=== PATIENT | male | born 1960 | race Caucasian/White ===

== ENCOUNTER → 2024-01-27 16:43 | Outpatient (REF) | payer BC, SELFPAY | LOC: RAD 16:43 | PROVIDERS: ATTENDING PHYSICIAN Surgery; FAMILY PHYSICIAN Family Medicine | DX: N20.0 Calculus of kidney (principal) | CPT/HCPCS: 74018 ==

== ENCOUNTER 2024-05-21 10:53 | Emergency (ER) | payer BC, SELFPAY ==
[2024-05-21 10:54] VITALS: BP 147/101
--- NOTE | 2024-05-21 11:10 | ED.GENMED ---
History of Present Illness
General
Chief Complaint: Male Genito-Urinary Symptoms
Source: patient
Time Seen by Provider: 05/21/24 10:58
History of Present Illness
History of Present Illness:
63yoM with a history of hypertension, hyperlipidemia, aortic valve replacement, and BPH presenting for evaluation of urinary retention. Patient has been unable to urinate since 11pm last night. He reports significant suprapubic pressure and pain. He
denies any fevers or vomiting. He states he was recently diagnosed with a low grade prostate cancer but has not started treatment yet.
Past History
Past History
ED Past Medical History: HTN, Hypercholesterolemia, Valvular disease, Psychiatric (Depression, Anxiety) and Other (Headache, Sleep apnea, Diverticulitis, Hernia, )
ED Past Surgical History: Cardiac (Aortic valve replaced X 3, pacemaker) and Other (Deviated septum repair)
Social History
Tobacco: Non-smoker
Alcohol: None
Personal:
Living: with family
Employment: Employed
Family History
Family History: Cancer
Phy Exam
General Physical Exam
General Presentation: moderate distress
General age: appears stated age
General Skin: warm and dry
General Habitus: normal
General Mental: alert
Pulmonary Exam
Pulmonary Exam: no respiratory distress
Gastrointestinal Exam
Gastrointestinal Exam: soft, non distended and tender (+Tenderness to suprapubic region with palpable bladder)
Skin Exam
Skin Exam: normal color and warm/dry
Course
Orders/Labs/Results
Orders:
Orders
05/21/24 10:58
Bladder Scan- Treatment ONCE
05/21/24 11:09
Castaneda Placement- Treatment ONCE
Reason for insertion: Acute Retention
05/21/24 11:17
Urinalysis Reflex To Culture Urgent
Date Specimen was Collected: 05/21/24
Time Specimen was Collected: 11:15
Urine Microscopic Reflex Cult Urgent
Abnormal Lab Results
05/21/24
11:17
Ur Occult Blood Reflex 1+ A
(Negative)
Urine RBC 7-10 A /HPF
(0-2)
Vital Signs
Initial and Last Documented VS:
Initial Vital Signs
Temp Pulse Resp BP Pulse Ox
97.6 F 104 18 147/101 98
05/21/24 10:54 05/21/24 10:54 05/21/24 10:54 05/21/24 10:54 05/21/24 10:54
Last Documented Vital Signs
Temp Pulse Resp BP Pulse Ox
97.6 F 104 18 147/101 98
05/21/24 10:54 05/21/24 10:54 05/21/24 10:54 05/21/24 10:54 05/21/24 10:54
MDM/Problems Addressed
Differential Diagnosis Includes:
63yoM here with acute urinary retention. Unable to urinate since last night. Known hx of BPH. He is afebrile and hemodynamically stable. He appears uncomfortable due to pain. Palpable bladder on exam. Differential diagnosis includes but is not
limited to: urinary retention, BPH, UTI
Initial ED plan: Bladder scan and likely Castaneda catheter placement.
*Critical Care Note
Total Time (30-74mins, 75-104mins- exclusive of procedures): Not Applicable
Update Note
Update Note:
Bladder scan around 770cc. Castaneda catheter inserted by nursing staff without difficulty. Urine return of about 900cc upon insertion. UA shows microscopic hematuria but no signs of infection. Symptoms resolved after catheter placement. He is stable
for discharge. Will discharge with catheter in place. Catheter care education provided by nursing staff. He has an appt scheduled with his urologist in 3 days. ED return precautions discussed. He was discharged in stable condition.
ED Attending Note
-
Portions of this chart may have been created with voice recognition software.� Occasional wrong word or��sound alike� substitutions may have occurred due to the inherent limitations of voice recognition software.
Discharge Plan
Departure
Patient Disposition: Home (Routine Discharge)
Date of Disposition: 05/21/24
Time of Disposition: 12:17
Patient with high blood pressure during this ER visit?: Yes
Discharge Problem:
Acute urinary retention
Instructions: How to Care for Your Castaneda Catheter, Male, Urinary Retention (DC)
Prescriptions:
No Action
sertraline 100 MG tablet
100 mg PO DAILY
ibuprofen 200 MG tablet
400 - 1,000 mg PO DAILY
fluticasone propionate 1 SPRAY spray,suspension
1 spray intranasal DAILY
aspirin 81 MG tablet,delayed release (DR/EC)
81 mg PO DAILY 0RF
lisinopril 5 MG tablet
5 mg PO DAILY Qty: 30 2RF
multivitamin with folic acid [Tab-A-Ponce] 1 TABLET tablet
1 tab PO DAILY 0RF
metoprolol succinate 25 mg Tablet Extended Release 24 Hr
25 mg PO DAILY
rosuvastatin 20 mg Tablet
25 mg PO DAILY
cyclobenzaprine 10 mg tablet
10 mg PO HS PRN (Reason: Muscle spasm) Qty: 7 0RF
Referrals:
Sunny Menjivar MD [Active] -
Lee Leach MD [Family Provider] -
Activity Restrictions/Additional Instructions:
Please follow-up with your urologist for catheter removal. Return to the ER with any worsening symptoms, fevers, or if the catheter stops draining.
Interventions
Interventions:
*Risk Screen - Suicide Last Done: 05/21/24 10:54
*General Assessment Last Done: 05/21/24 10:54
*Neglect/Abuse Screening Last Done: 05/21/24 10:54
*Nursing Disposition Last Done: 05/21/24 13:01
ED-Male Genitourinary Assessment Last Done: 05/21/24 11:10
Discharge Date and Time
Discharge Date/Time: 05/21/24 13:01
Print Language: SETS[place]
[2024-05-21 11:32] LABS: Urine Albumin Negative (Neg - Trace); Urine Bilirubin Negative (Negative); Urine Character Clear (Clear); Urine Color Yellow; Urine Glucose Negative (Negative); Urine Ketone Negative (Negative); Urine Leukocyte Negative (Negative); Urine Nitrite Negative (Negative); Urine Occult Blood 1+ (Negative); Urine Urobilinogen Negative (Neg - 1+)
[2024-05-21 12:07] LABS: Urine White Cell None Seen /HPF (0-5)
== END 2024-05-21 13:01 | disposition home or self-care (01) ==
LOC: EMR 10:53
PROVIDERS: Physician Assistant; EMERGENCY PHYSICIAN Emergency Medicine; FAMILY PHYSICIAN Family Medicine
DX: R31.9 Hematuria, unspecified (principal); I10 Essential (primary) hypertension; E78.00 Pure hypercholesterolemia, unspecified; N40.1 Benign prostatic hyperplasia with lower urinary tract symptoms; I38 Endocarditis, valve unspecified; C61 Malignant neoplasm of prostate; F41.8 Other specified anxiety disorders; G47.30 Sleep apnea, unspecified; Z95.0 Presence of cardiac pacemaker; Z95.2 Presence of prosthetic heart valve
CPT/HCPCS: 99282; 51702; 81003; 81015

== ENCOUNTER 2024-06-04 12:25 | Emergency (ER) | payer BC, SELFPAY ==
[2024-06-04 12:27] VITALS: BP 168/103
[2024-06-04 14:18] LABS: Urine Albumin Trace (Neg - Trace); Urine Bilirubin Negative (Negative); Urine Character Clear (Clear); Urine Color Yellow; Urine Glucose Negative (Negative); Urine Ketone Negative (Negative); Urine Leukocyte Negative (Negative); Urine Nitrite Negative (Negative); Urine Occult Blood 3+ (Negative); Urine Urobilinogen Negative (Neg - 1+)
[2024-06-04 14:36] LABS: Urine White Cell 0-2 /HPF (0-5)
--- NOTE | 2024-06-04 14:55 | ED.GENMED ---
History of Present Illness
<Sal Rawls PA-C - Last Filed: 06/05/24 09:57>
General
Chief Complaint: Male Genito-Urinary Symptoms
Time Seen by Provider: 06/04/24 12:55
History of Present Illness
History of Present Illness:
63-year-old male presents to the emergency department for evaluation of acute urinary retention. He was seen in this emergency department 2 weeks ago for the same symptoms, Peterson catheter was placed and he was started on Flomax. He followed up
with urology at which time the Peterson was removed and he was able to tolerate the voiding trial. Has only had small trickles of urine since last night. He has been compliant with Flomax.
Past History
<Sal Rawls PA-C - Last Filed: 06/05/24 09:57>
Past History
ED Past Medical History: HTN, Hypercholesterolemia, Valvular disease, Psychiatric (Depression, Anxiety) and Other (Headache, Sleep apnea, Diverticulitis, Hernia, )
ED Past Surgical History: Cardiac (Aortic valve replaced X 3, pacemaker) and Other (Deviated septum repair)
Social History
Tobacco: Non-smoker
Alcohol: None
Personal:
Living: with family
Employment: Employed
Family History
Family History: Cancer
Review of Systems
<Sal Rawls PA-C - Last Filed: 06/05/24 09:57>
Review of Systems
Allergies reviewed?: Yes
All Other Systems: ROS reviewed and negative except as documented in HPI and ROS
Phy Exam
<Sal Rawls PA-C - Last Filed: 06/05/24 09:57>
Physical Exam
Physical Exam:
GEN: Well appearing, NAD, WDWN
HEENT: Oral mucosa moist, no scleral icterus
Cardiac: Regular rate
Lung: No respiratory distress, no tachypnea
MSK: No gross deformity or injuries
Skin: Good color, no pallor or jaundice, no rashes
Neuro: AO x3, moves all extremities freely
Psych: Calm, cooperative
Course
<Sal Rawls PA-C - Last Filed: 06/05/24 09:57>
Orders/Labs/Results
Orders:
Orders
06/04/24 13:20
Straight cath- Treatment ONCE
06/04/24 14:03
Urinalysis Reflex To Culture Urgent
Date Specimen was Collected: 06/04/24
Time Specimen was Collected: 13:55
Urine Microscopic Reflex Cult Urgent
Abnormal Lab Results
06/04/24
14:03
Ur Occult Blood Reflex 3+ A
(Negative)
Urine RBC 7-10 A /HPF
(0-2)
Vital Signs
Initial and Last Documented VS:
Initial Vital Signs
Temp Pulse Resp BP Pulse Ox
97.3 F 115 18 168/103 96
06/04/24 12:27 06/04/24 12:27 06/04/24 12:27 06/04/24 12:27 06/04/24 12:27
Last Documented Vital Signs
Temp Pulse Resp BP Pulse Ox
97.3 F 63 18 117/65 95
06/04/24 12:27 06/04/24 17:17 06/04/24 17:17 06/04/24 17:17 06/04/24 17:17
<Karla Liz PA-C - Last Filed: 06/04/24 23:11>
Orders/Labs/Results
Orders:
Orders
06/04/24 13:20
Straight cath- Treatment ONCE
06/04/24 14:03
Urinalysis Reflex To Culture Urgent
Date Specimen was Collected: 06/04/24
Time Specimen was Collected: 13:55
Urine Microscopic Reflex Cult Urgent
Abnormal Lab Results
06/04/24
14:03
Ur Occult Blood Reflex 3+ A
(Negative)
Urine RBC 7-10 A /HPF
(0-2)
Vital Signs
Initial and Last Documented VS:
Initial Vital Signs
Temp Pulse Resp BP Pulse Ox
97.3 F 115 18 168/103 96
06/04/24 12:27 06/04/24 12:27 06/04/24 12:27 06/04/24 12:27 06/04/24 12:27
Last Documented Vital Signs
Temp Pulse Resp BP Pulse Ox
97.3 F 63 18 117/65 95
06/04/24 12:27 06/04/24 17:17 06/04/24 17:17 06/04/24 17:17 06/04/24 17:17
<Sal Rawls PA-C - Last Filed: 06/05/24 09:57>
MDM/Problems Addressed
MDM/Problems Addressed:
Patient is very apprehensive to catheter placement. Straight cath was performed for greater than 500 cc of urine, will hydrate the patient orally and void trial later. Repeat bladder scan with only 42, urinalysis with hematuria which has been
consistent for the patient in the past given his known prostate malignancy.
Will sign out to Blanca Liz PA-C pending voiding trial. High suspicion pt will require a cath
<Karla Liz PA-C - Last Filed: 06/04/24 23:11>
MDM/Problems Addressed
MDM/Problems Addressed:
Patient is very apprehensive to catheter placement. Straight cath was performed for greater than 500 cc of urine, will hydrate the patient orally and void trial later. Repeat bladder scan with only 42, urinalysis with hematuria which has been
consistent for the patient in the past given his known prostate malignancy.
Will sign out to Blanca Liz PA-C pending voiding trial. High suspicion pt will require a cath
06/04/2024 1549 PM
Blanca Liz PA-C, assumed care of this patient at 1500. Patient feels much better. He is in no distress. We are waiting for him to p.o. enough to feel full to perform a postvoid residual. Patient is aware that this could take some time. He also
is aware that normally the processes the patient would have gotten Peterson catheter he currently was not drinking AT his bedside that he was encouraged to do so because his disposition is based on his ability to void.
1730
pt voided 150 ml and had 160 ml in bladder;
still refuses peterson and at this point, ok to d/c home
pt educated there is a chance this happens again
has f/u with uro already for w/u for prostate ca.
<Karla Liz PA-C - Last Filed: 06/04/24 23:11>
*Critical Care Note
Total Time (30-74mins, 75-104mins- exclusive of procedures): Not Applicable
ED Attending Note
<Sal Rawls PA-C - Last Filed: 06/05/24 09:57>
-
Portions of this chart may have been created with voice recognition software.� Occasional wrong word or��sound alike� substitutions may have occurred due to the inherent limitations of voice recognition software.
Discharge Plan
Departure
Patient Disposition: Home (Routine Discharge)
Date of Disposition: 06/04/24
Time of Disposition: 17:16
Patient with high blood pressure during this ER visit?: No
Condition: Fair
Discharge Problem:
Acute urinary retention
Instructions: Urinary Retention (DC)
Prescriptions:
No Action
sertraline 100 MG tablet
100 mg PO DAILY
ibuprofen 200 MG tablet
400 - 1,000 mg PO DAILY
fluticasone propionate 1 SPRAY spray,suspension
1 spray intranasal DAILY
aspirin 81 MG tablet,delayed release (DR/EC)
81 mg PO DAILY 0RF
lisinopril 5 MG tablet
5 mg PO DAILY Qty: 30 2RF
multivitamin with folic acid [Tab-A-Ponce] 1 TABLET tablet
1 tab PO DAILY 0RF
metoprolol succinate 25 mg Tablet Extended Release 24 Hr
25 mg PO DAILY
rosuvastatin 20 mg Tablet
25 mg PO DAILY
cyclobenzaprine 10 mg tablet
10 mg PO HS PRN (Reason: Muscle spasm) Qty: 7 0RF
Referrals:
Giovanni Higginbotham MD [Active] - Follow up in 2-3 days
Lee Leach MD [Family Provider] -
Activity Restrictions/Additional Instructions:
You were in urinary retention today. We had offered you a Peterson catheter which had declined on your straight cath and able to void most of your urine subsequent to the straight cath. Hopefully this does not recur for you but it could. If you do
not pee in 8 to 12 hours and feel uncomfortable again you can return to the ER. Follow-up with the urologist for further workup for your prostate concerns as planned. Return for any issues
Interventions
Interventions:
*Risk Screen - Suicide Last Done: 06/04/24 12:27
*General Assessment Last Done: 06/04/24 12:27
*Neglect/Abuse Screening Last Done: 06/04/24 12:27
ED- Fall Risk Assessment Last Done: 06/04/24 17:45
*ED COVID-19 Vaccine History Last Done: 06/04/24 12:27
*Nursing Disposition Last Done: 06/04/24 17:45
ED-Male Genitourinary Assessment Last Done: 06/04/24 12:46
Discharge Date and Time
Discharge Date/Time: 06/04/24 17:46
Print Language: NEPALESE
[2024-06-04 15:55] VITALS: BP 111/55
[2024-06-04 17:17] VITALS: BP 117/65
== END 2024-06-04 17:46 | disposition home or self-care (01) ==
LOC: EMR 12:25
PROVIDERS: Physician Assistant; EMERGENCY PHYSICIAN Emergency Medicine; FAMILY PHYSICIAN Family Medicine
DX: R33.9 Retention of urine, unspecified (principal); I10 Essential (primary) hypertension; E78.00 Pure hypercholesterolemia, unspecified; I38 Endocarditis, valve unspecified; F41.8 Other specified anxiety disorders; G47.30 Sleep apnea, unspecified; Z95.0 Presence of cardiac pacemaker; Z95.2 Presence of prosthetic heart valve; C61 Malignant neoplasm of prostate
CPT/HCPCS: 99282; 81003; 81015

== ENCOUNTER 2024-06-17 16:06 | Emergency (ER) | payer BC, SELFPAY ==
--- NOTE | 2024-06-17 16:28 | ED.GENMED ---
History of Present Illness
General
Chief Complaint: Male Genito-Urinary Symptoms
Time Seen by Provider: 06/17/24 16:27
History of Present Illness
History of Present Illness:
HPI: Patient presents due to urinary retention. He was recently here and a catheter was placed. This is his third visit in the past 1 month. He has been seen by urology, Dr. Soni. He apparently had prostate biopsy in which 4 of the 12 sites
were positive for prostate cancer. However ultimately through [facility] follow-up he was recommended watchful waiting and follow-up with PSAs. He has been having increasing difficulty with passing the urine and is able to straight cath but feels
more 'raw' in the penile area and also intermittently has had some rectal bleeding.
EXAM:
GENERAL: Well appearing in no distress
HEENT: Moist oral mucosa
CARDIOVASCULAR: No murmurs, normal heart rate, regular rhythm, No chest wall tenderness
PULMONARY: No respiratory distress, breath sounds are clear and equal
ABDOMEN: Soft with no peritoneal signs, no tenderness, on visualization of the anus, there is dried blood as well as some small external hemorrhoids
NEUROLOGIC: Excellent strength all extremities, no coordination deficits
PSYCHIATRIC: Appropriate mental status, normal insight and judgement
EXTREMITIES: Nontender, no edema, moves all extremities equally
SKIN: No rash, no lesions
TIME OF INITIAL ENCOUNTER: 4:45 PM
NUMBER AND COMPLEXITY OF PROBLEMS ADDRESSED AT THE ENCOUNTER
� Chronic conditions affecting care: Aortic stenosis, high blood pressure, hyperlipidemia, diverticular disease, BPH
� Acute Exacerbation and/or Progression of Chronic Illness: This is an acute problem
� Differential Diagnosis includes: Acute urinary retention, BPH, prostate cancer
AMOUNT AND/OR COMPLEXITY OF DATA TO BE REVIEWED AND ANALYZED
� I performed an independent evaluation of and my interpretation is:
EKG:
CT:
X-rays:
Laboratory Studies: Urinalysis shows 11-15 white cells
Other:
� Review of other/old records: Prior urine cultures have been negative for infection
� Clinical information was obtained by an independent historian: None needed
� Prescriptions/Medications Considered but not given:
� Further testing considered but not performed:
RISK OF COMPLICATIONS AND/OR MORBIDITY OR MORTALITY OF PATIENT MANAGEMENT
� Social determinants of health affecting care: Lives at home
� Discussion with other providers: Notified Dr. Tirado of the patient's presentation
� Escalation of care including admission/observation vs risk of discharge considered: Upon arrival here bladder scan showed 700 mL of urine. Nurse placed a [address] [place] [address] catheter without difficulty. Dr. Tirado recommends the
patient follow-up with Dr. Soni as outpatient. The patient has multiple specific urologic concerns and he is to follow-up with Dr. Soni this coming week.
Past History
Past History
ED Past Medical History: HTN, Hypercholesterolemia, Valvular disease, Psychiatric (Depression, Anxiety) and Other (Headache, Sleep apnea, Diverticulitis, Hernia, )
ED Past Surgical History: Cardiac (Aortic valve replaced X 3, pacemaker) and Other (Deviated septum repair)
Social History
Tobacco: Non-smoker
Alcohol: None
Personal:
Living: with family
Employment: Employed
Family History
Family History: Cancer
Phy Exam
Physical Exam
Physical Exam:
See HPI
Course
Orders/Labs/Results
Orders:
Orders
06/17/24 16:28
Peterson Placement- Treatment ONCE
Reason for insertion: Acute Retention
06/17/24 17:16
Urinalysis Reflex To Culture Urgent
Date Specimen was Collected: 06/17/24
Time Specimen was Collected: 17:03
Comment: from new peterson placement
Urine Microscopic Reflex Cult Urgent
Urine Culture Urgent
ANGELINA Source: U
Specimen Description:
Date Specimen was Collected: 06/17/24
Time Specimen was Collected: 17:03
Abnormal Lab Results
06/17/24
17:16
Ur Occult Blood Reflex 3+ A
(Negative)
Leukocyte Esterase Rfl Trace A
(Negative)
Urine RBC 21-25 A /HPF
(0-2)
Urine WBC (Reflex) 11-15 A /HPF
(0-5)
Urine Bacteria (Reflex) Few A
(Negative)
Vital Signs
Initial and Last Documented VS:
Initial Vital Signs
Temp Pulse Resp Pulse Ox
99.1 F 96 18 96
06/17/24 16:11 06/17/24 16:11 06/17/24 16:11 06/17/24 16:11
Last Documented Vital Signs
Temp Pulse Resp BP Pulse Ox
99.1 F 62 14 113/67 92
06/17/24 16:11 06/17/24 17:14 06/17/24 17:14 06/17/24 17:14 06/17/24 17:14
*Critical Care Note
Total Time (30-74mins, 75-104mins- exclusive of procedures): Not Applicable
ED Attending Note
-
Portions of this chart may have been created with voice recognition software.� Occasional wrong word or��sound alike� substitutions may have occurred due to the inherent limitations of voice recognition software.
Discharge Plan
Departure
Patient Disposition: Home (Routine Discharge)
Date of Disposition: 06/17/24
Time of Disposition: 17:10
Patient with high blood pressure during this ER visit?: Yes
Discharge Problem:
Acute urinary retention
Prescriptions:
No Action
aspirin 81 MG tablet,delayed release (DR/EC)
81 mg PO DAILY 0RF
multivitamin with folic acid [Tab-A-Ponce] 1 TABLET tablet
1 tab PO DAILY 0RF
metoprolol succinate 25 mg Tablet Extended Release 24 Hr
25 mg PO DAILY
rosuvastatin 20 mg Tablet
20 mg PO DAILY
sertraline 150 mg Capsule
150 mg PO DAILY
Vitamin C
1 tab PO DAILY
Patient Comments:
pt does not know mg
Vitamin D3
1 tab PO DAILY
Patient Comments:
pt does not know mg
tamsulosin [Flomax] 0.4 mg Capsule
0.8 mg PO HS
finasteride 5 mg Tablet
5 mg PO HS
Fish Oil
1 cap PO DAILY
Patient Comments:
pt does not know mg
cyanocobalamin (vitamin B-12)
1 tab PO DAILY
Patient Comments:
pt does not know mg
saw palmetto
2 tab PO BID
turmeric
1 tab PO DAILY
Patient Comments:
pt does not know mg
Referrals:
Alec Soni MD [Active] - Follow up in 2-3 days
UNKNOWN - PT DOES,NOT KNOW [Unknown Provider] -
Activity Restrictions/Additional Instructions:
I spoke to Dr. Tirado covering for Dr. Soni. Please follow-up Dr. Soni for further recommendations. Dr. Tirado recommends keeping the catheter in for now.
Interventions
Interventions:
*Risk Screen - Suicide Last Done: 06/17/24 16:11
*General Assessment Last Done: 06/17/24 16:11
*Neglect/Abuse Screening Last Done: 06/17/24 16:11
*ED COVID-19 Vaccine History Last Done: 06/17/24 17:06
ED-Male Genitourinary Assessment Last Done: 06/17/24 17:20
Discharge Date and Time
Print Language: CITIZEN OF [place]
[2024-06-17 16:29] VITALS: BMI 29.9
[2024-06-17 16:34] VITALS: BP 127/79
[2024-06-17 17:14] VITALS: BP 113/67
[2024-06-17 17:35] LABS: Urine Albumin Trace (Neg - Trace); Urine Bilirubin Negative (Negative); Urine Character Clear (Clear); Urine Color Yellow; Urine Glucose Negative (Negative); Urine Ketone Negative (Negative); Urine Leukocyte Trace (Negative); Urine Nitrite Negative (Negative); Urine Occult Blood 3+ (Negative); Urine Specific Gravity 1.015 (<1.030); Urine Urobilinogen Negative (Neg - 1+)
--- NOTE | 2024-06-17 17:44 | EDRN ---
Changed pt's stat lock to higher up on R leg per pt request. Switched pt to leg bag which pt is familiar with using. Pt given 2L and 4L urinary bags to switch to at nighttime.
[2024-06-17 17:56] LABS: Urine Red Blood Cell 21-25 /HPF (0-2)
[2024-06-17 17:57] LABS: Urine Bacteria Few (Negative)
== END 2024-06-17 17:55 | disposition home or self-care (01) ==
LOC: EMR 16:06
PROVIDERS: EMERGENCY PHYSICIAN Emergency Medicine; FAMILY PHYSICIAN Family Medicine
DX: R33.8 Other retention of urine (principal); I10 Essential (primary) hypertension; E78.00 Pure hypercholesterolemia, unspecified; Z95.0 Presence of cardiac pacemaker
CPT/HCPCS: 99283; 51798; 51702; 81003; 81015; 87077; 87086; 87186

== ENCOUNTER → 2024-06-21 16:39 | Outpatient (REF) | payer BC, SELFPAY ==
[2024-06-21 18:07] LABS: Blood Urea Nitrogen 22 mg/dl (9-20); Calcium 9.1 mg/dl (8.4-10.2); Carbon Dioxide 27 mmol/L (22-30); Chloride 104 mmol/L (98-107); Glucose 95 mg/dl (70-99); Potassium 4.6 mmol/L (3.5-5.1); Sodium 136 mmol/L (135-145); eGFR > 60.00
== END ==
LOC: REG 16:39
PROVIDERS: ATTENDING PHYSICIAN Surgery; FAMILY PHYSICIAN Family Medicine
DX: C61 Malignant neoplasm of prostate (principal)
CPT/HCPCS: 36415; 80048

== ENCOUNTER → 2024-06-23 08:07 | Outpatient (REF) | payer BC, SELFPAY | LOC: RAD 08:07 | PROVIDERS: ATTENDING PHYSICIAN Surgery; FAMILY PHYSICIAN Family Medicine | DX: C61 Malignant neoplasm of prostate (principal) | CPT/HCPCS: 74177; Q9967 ==

== ENCOUNTER 2024-08-31 12:31 | Emergency (ER) | payer BC, SELFPAY ==
--- NOTE | 2024-08-31 13:21 | ED.GENMED ---
History of Present Illness
General
Chief Complaint: Male Genito-Urinary Symptoms
Source: patient
Exam Limitations: none
Time Seen by Provider: 08/31/24 13:03
Nursing documentation reviewed up to this point in time: agreed with
History of Present Illness
History of Present Illness:
64-year-old male presents to the ER for evaluation of right testicular swelling.
Patient reports he noticed swelling to the right testicle over the weekend(for the past at least 4 days. . He denies any dysuria. He does complain of discomfort to the area. Denies any injury. He had a prostate biopsy in April and had issues with
urinating after procedure. He had required catheters in the past as well as he did self catheterize himself. He has however not needed to do that in a while.
Regarding patient's prostate biopsy patient reports urology at [facility] initially recommended after biopsy results that he have radiation however he did get a second opinion from Severino Knight that recommended he watch his PSA numbers and have
a repeat biopsy done and hold off on radiation. Patient has chosen to hold off on radiation.
He denies any fevers however has had some joint pain recently. Denies any joint swelling. Denies any URI symptoms cough cold congestion.
Past History
Past History
ED Past Medical History: HTN, Hypercholesterolemia, Valvular disease, Psychiatric (Depression, Anxiety) and Other (Headache, Sleep apnea, Diverticulitis, Hernia, )
ED Past Surgical History: Cardiac (Aortic valve replaced X 3, pacemaker) and Other (Deviated septum repair)
Social History
Tobacco: Non-smoker
Alcohol: None
Personal:
Living: with family
Employment: Employed
Family History
Family History: Cancer
Review of Systems
Review of Systems
Allergies reviewed?: Yes
All Other Systems: ROS reviewed and negative except as documented in HPI and ROS
Constitutional: Reports no symptoms
Respiratory: Reports no symptoms
Cardiac: Reports no symptoms
ABD/GI: Reports no symptoms; Denies abdominal pain, nausea or vomiting
: Reports other (right testicular swelling ); Denies dysuria, frequency, flank pain, incontinence, difficulty voiding, urgency, dark urine or discharge
Musculoskeletal: Reports other (joint aches)
Skin: Reports no symptoms
Neurological: Reports no symptoms
Psychiatric: Reports no symptoms
Phy Exam
General Physical Exam
General Presentation: no apparent distress
General age: appears stated age
General Skin: warm and dry
General Habitus: normal
General Mental: alert
General Hydration: appears well hydrated
Gastrointestinal Exam
Gastrointestinal Exam: normal bowel sounds, non tender and soft
Genitourinary Exam Male
Exam Male: circumcised and other (Examined with examiner of currency RN at bedside right testicle is obviously swollen and tender left testicle normal)
Neurological Exam
Neurological Exam: alert and oriented x3
Musculoskeletal Exam
Musculoskeletal Exam: full ROM
Skin Exam
Skin Exam: normal color and warm/dry
Psychiatric Exam
Psychiatric Exam: normal mood/affect
Course
Orders/Labs/Results
Orders:
Orders
08/31/24 12:41
Scrotum US [US Scrotum] Urgent
Comment:
Reason For Exam: pain, swelling R testicle
08/31/24 13:30
IV Insert/Care/Rem.- Treatment PRN
08/31/24 14:27
Complete Blood Count/With Diff Urgent
Comprehensive Metabolic Panel Urgent
08/31/24 14:48
UA Reflex to Culture [Urinalysis Reflex To Culture] Urgent
Date Specimen was Collected: 08/31/24
Time Specimen was Collected: 14:27
Urine Microscopic Reflex Cult Urgent
08/31/24 16:57
Vital Signs- Treatment ONCE
Frequency: Once
Abnormal Lab Results
08/31/24 08/31/24
14:27 14:48
WBC 11.7 H 10^3/uL
(4.8-10.8)
RBC 4.33 L 10^6/uL
(4.70-6.10)
Hct 38.7 L %
(39.0-52.0)
Abs Immat Gran (auto) 0.1 H 10^3/uL
(0-0.05)
Absolute Neuts (auto) 9.6 H 10^3/uL
(1.4-6.5)
Absolute Lymphs (auto) 0.8 L 10^3/uL
(1.2-3.4)
Absolute Monos (auto) 1.1 H 10^3/uL
(0.1-0.6)
Neutrophils % 81.7 H %
(42.2-75.2)
Lymphocytes % 7.0 L %
(20.5-51.1)
Glucose 105 H mg/dl
(70-99)
Leukocyte Esterase Rfl Trace A
(Negative)
Urine Bacteria (Reflex) Few A
(Negative)
08/31/24 14:27
08/31/24 14:27
Vital Signs
Initial and Last Documented VS:
Initial Vital Signs
Resp BP
18 122/74
08/31/24 14:27 08/31/24 14:27
Last Documented Vital Signs
Temp Pulse Resp BP Pulse Ox
99.4 F 78 18 116/75 98
08/31/24 17:01 08/31/24 17:01 08/31/24 17:01 08/31/24 17:01 08/31/24 17:01
MDM/Problems Addressed
Differential Diagnosis Includes:
Not limited to hydrocele, infection less likely hernia
MDM/Problems Addressed:
Patient is a 64-year-old male who follows with Severino Knight presents to the ER for right-sided testicular swelling no injury. Ultrasound does show a moderate-sized septated right hydrocele. Patient does have a history after prostate biopsy of
urinary retention however has not had issues recently and denies any dysuria or retention. UA does not appear infected. White count minimally elevated however no infectious symptoms and no fevers. No complaints abdominal pain abdomen soft
nontender. Patient was known to our urology group here at [facility] however as documented is now follow with Severino Knight. I did speak with urology does send Dr. Soni who pt has seen in the past.
Patient has elected to follow-up with Severino Knight and has canceled several appointments with this urology group. It is recommended the patient follow-up with Severino Knight for continuity of care but he may if he chooses also follow-up with urology here
at [facility] for further evaluation outpatient management and discussed possible surgical options for hydrocele. I did review this with patient. He tells me he has an upcoming appointment in September with Dr. Soni. I did discuss with patient
that he if he has a appointment he is encouraged to keep the appointment otherwise he should follow-up with Severino Knight but notify [facility] group. As per urology recommend tight fitting underwear.
Patient did have complaints of mild joint discomfort however no obvious swelling on exam no erythema. He denies any URI symptoms cough or congestion. White count very minimally elevated possible early viral syndrome will DC with outpatient follow
family doctor as well.
*Critical Care Note
Total Time (30-74mins, 75-104mins- exclusive of procedures): Not Applicable
Patient Management
Discussion with other providers: Residential Driver (urology Dr Soni )
ED Attending Note
-
Portions of this chart may have been created with voice recognition software.� Occasional wrong word or��sound alike� substitutions may have occurred due to the inherent limitations of voice recognition software.
Discharge Plan
Departure
Patient Disposition: Home (Routine Discharge)
Date of Disposition: 08/31/24
Time of Disposition: 16:41
Patient with high blood pressure during this ER visit?: No
Condition: Fair
Covid-19: Not Applicable
Discharge Problem:
Hydrocele in adult
Instructions: Hydrocele, Hydrocele/Varicocele (DC)
Prescriptions:
No Action
aspirin 81 MG tablet,delayed release (DR/EC)
81 mg PO DAILY 0RF
multivitamin with folic acid [Tab-A-Ponce] 1 TABLET tablet
1 tab PO DAILY 0RF
metoprolol succinate 25 mg Tablet Extended Release 24 Hr
25 mg PO DAILY
rosuvastatin 20 mg Tablet
20 mg PO DAILY
sertraline 150 mg Capsule
150 mg PO DAILY
Vitamin C
1 tab PO DAILY
Patient Comments:
pt does not know mg
Vitamin D3
1 tab PO DAILY
Patient Comments:
pt does not know mg
tamsulosin [Flomax] 0.4 mg Capsule
0.8 mg PO HS
finasteride 5 mg Tablet
5 mg PO HS
Fish Oil
1 cap PO DAILY
Patient Comments:
pt does not know mg
cyanocobalamin (vitamin B-12)
1 tab PO DAILY
Patient Comments:
pt does not know mg
saw palmetto
2 tab PO BID
turmeric
1 tab PO DAILY
Patient Comments:
pt does not know mg
Referrals:
Lee Leach MD [Family Provider] -
Activity Restrictions/Additional Instructions:
As discussed wear supportive tight fitting underwear for discomfort. Follow-up with your urologist at [place] and or Urology here at [facility]. Return if any worsening of symptoms.
Interventions
Interventions:
*Risk Screen - Suicide Last Done: 08/31/24 12:35
*General Assessment Last Done: 08/31/24 12:35
*Neglect/Abuse Screening Last Done: 08/31/24 12:35
ED- Fall Risk Assessment Last Done: 08/31/24 14:30
ED-Male Genitourinary Assessment Last Done: 08/31/24 14:30
Discharge Date and Time
Print Language: MOLDOVAN
[2024-08-31 14:27] VITALS: BP 122/74
[2024-08-31 14:36] LABS: % Basophils 0.7 % (0-2); % Eosinophils 1.2 % (0-6); % Immature Granulocytes 0.4 % (0-0.5); % Neutrophils 81.7 % (42.2-75.2); Absolute Basophils 0.1 10^3/uL (0-0.2); Absolute Eosinophils 0.1 10^3/uL (0-0.7); Absolute Immature Granulocytes 0.1 10^3/uL (0-0.05); Absolute Lymphocytes 0.8 10^3/uL (1.2-3.4); Absolute Monocytes 1.1 10^3/uL (0.1-0.6); Absolute Neutrophils 9.6 10^3/uL (1.4-6.5); Hematocrit 38.7 % (39.0-52.0); Hemoglobin 13.2 g/dL (13.0-18.0); Mean Corp Hgb Conc. 34.1 g/dL (33.0-37.0); Mean Corpuscular Hgb 30.5 pg (27.0-31.0); Mean Corpuscular Volume 89.4 fL (80.0-94.0); Nucleated Red Blood Cells % 0 % (-); Platelet Count 266 10^3/uL (130-400); Red Blood Cell Count 4.33 10^6/uL (4.70-6.10); Red Cell Dist. Width 12.9 % (11.5-14.5); White Blood Cell Count 11.7 10^3/uL (4.8-10.8)
[2024-08-31 14:48] LABS: ALT (SGPT) 27 U/L (0-50); AST (SGOT) 25 U/L (17-59); Albumin 4.3 g/dl (3.5-5.0); Alkaline Phosphatase 77 U/L (38-126); Blood Urea Nitrogen 17 mg/dl (9-20); Calcium 9.3 mg/dl (8.4-10.2); Carbon Dioxide 26 mmol/L (22-30); Chloride 99 mmol/L (98-107); Glucose 105 mg/dl (70-99); Potassium 4.6 mmol/L (3.5-5.1); Sodium 136 mmol/L (135-145); Total Bilirubin 0.7 mg/dl (0.2-1.3); Total Protein 7.1 g/dl (6.3-8.2); eGFR > 60.00
[2024-08-31 15:40] LABS: Urine Albumin Negative (Neg - Trace); Urine Bilirubin Negative (Negative); Urine Character Clear (Clear); Urine Color Yellow; Urine Glucose Negative (Negative); Urine Ketone Negative (Negative); Urine Leukocyte Trace (Negative); Urine Nitrite Negative (Negative); Urine Occult Blood Negative (Negative); Urine Specific Gravity 1.015 (<1.030); Urine Urobilinogen 1+ (Neg - 1+); Urine pH 6.5 (5.0-9.0)
[2024-08-31 15:55] LABS: Urine Bacteria Few (Negative); Urine Red Blood Cell 0-2 /HPF (0-2); Urine Squamous Cell 0-2 /LPF (Few)
[2024-08-31 17:01] VITALS: BP 116/75
== END 2024-08-31 17:24 | disposition home or self-care (01) ==
LOC: EMR 12:31
PROVIDERS: Nurse Practitioner; EMERGENCY PHYSICIAN Student in an Organized Health Care Education/Training Program; FAMILY PHYSICIAN Family Medicine
DX: N43.3 Hydrocele, unspecified (principal); N50.811 Right testicular pain; I10 Essential (primary) hypertension; E78.00 Pure hypercholesterolemia, unspecified; F32.A Depression, unspecified; F41.9 Anxiety disorder, unspecified; G47.30 Sleep apnea, unspecified; K57.92 Diverticulitis of intestine, part unspecified, without perforation or abscess without bleeding; M19.90 Unspecified osteoarthritis, unspecified site; N40.0 Benign prostatic hyperplasia without lower urinary tract symptoms; Z95.2 Presence of prosthetic heart valve; Z95.0 Presence of cardiac pacemaker; Z79.82 Long term (current) use of aspirin
CPT/HCPCS: 99284; 76870; 80053; 81003; 81015; 85025; 93976

== ENCOUNTER → 2024-12-16 14:02 | Outpatient (REF) | payer BC, SELFPAY ==
--- NOTE | 2024-12-16 15:00 | CARDSERVLU ---
Echocardiogram with [facility] completed after protocol screening completed. Allergies verified.
Patent IV site: _ R FA____
IV site flushed with 0.9% NaCl pre and post administration.
Diluted bolus method utilized to enhance visualization of ventricular delacruz.
Total volume given: __1.5__ mL
Patient tolerated all procedures well without complications.
== END ==
LOC: RCS 14:02
PROVIDERS: ATTENDING PHYSICIAN Internal Medicine
DX: Z95.2 Presence of prosthetic heart valve (principal); I44.7 Left bundle-branch block, unspecified; I71.21 Aneurysm of the ascending aorta, without rupture; I34.0 Nonrheumatic mitral (valve) insufficiency; I42.8 Other cardiomyopathies
CPT/HCPCS: 93306; Q9950